=== PATIENT | male | born 1955 | race Caucasian/White ===

== ENCOUNTER 2024-12-19 12:18 | Emergency (ER) | payer OTHER ==
[~2024-12-19] VITALS: Ht 177.8 cm; Wt 76.3 kg
[2024-12-19 12:26] VITALS: TEMP 97.5
[2024-12-19 13:21] LABS: COVID AG,FIA SOURCE NASAL SWAB
[2024-12-19 13:24] LABS: BASOPHILS % (AUTO) 0.6 % (0.0-2.0); EOSINOPHILS % (AUTO) 3.5 % (1.0-6.0); HEMATOCRIT 47.1 % (41-53); HEMOGLOBIN 15.7 g/dL (13.5-17.5); LYMPHOCYTES # (AUTO) 1.8 K/uL (1.0-4.8); MEAN CORPUSCULAR HEMOGLOBIN 29.6 pg (26.0-34.0); MEAN CORPUSCULAR HGB CONC 33.2 G/dL (31.0-37.0); MEAN CORPUSCULAR VOLUME 89 fL (80-100); MONOCYTES # (AUTO) 0.7 K/uL (0.1-1.0); MONOCYTES % (AUTO) 8.7 % (2.0-9.0); NEUTROPHILS # (AUTO) 4.7 K/uL (1.8-7.7); NEUTROPHILS % (AUTO) 63.2 % (40.0-70.0); PLATELET COUNT (AUTO) 150 K/uL (150-450); RED BLOOD CELL COUNT(AUTO) 5.29 MIL/uL (4.50-5.90); RED CELL DISTRIBUTION WIDTH 15.1 % (11.5-14.5); WHITE BLOOD COUNT (AUTO) 7.5 K/uL (4.5-11.0)
[2024-12-19 13:31] LABS: ANION GAP 7 mmol/L (8-16); CALCIUM, TOTAL 8.8 mg/dL (8.8-10.5); CARBON DIOXIDE 31 mmol/L (22-29); CHLORIDE 103 mmol/L (98-107); CREATININE 1.28 mg/dL (0.60-1.30); GLOMERULAR FILTR. RATE CALC 56 mL/min (>60); GLUCOSE,RANDOM 99 mg/dL (70-110); POTASSIUM 4.2 mmol/L (3.5-5.1); SODIUM SERUM 141 mmol/L (136-145); UREA NITROGEN, BLOOD 25 mg/dL (7-18)
[2024-12-19 13:35] LABS: ALBUMIN 3.2 g/dL (3.4-5.0); BILIRUBIN,DIRECT 0.2 mg/dL (0.00-0.20); BILIRUBIN,TOTAL 0.7 mg/dL (0.1-1.0); TOTAL PROTEIN, SERUM 6.5 g/dL (6.4-8.2)
[2024-12-19 13:40] LABS: TROPONIN I-HIGH SENSITIVITY 17 ng/L (<76)
[2024-12-19 13:42] LABS: SARS-COV2 (COVID) ANTIGEN,FIA Negative (Negative)
[2024-12-19 15:30] VITALS: BP 135/87; PULSE 48; RESP 16; O2SAT 98
[2024-12-19 15:42] LABS: TROPONIN I-HIGH SENSITIVITY 16 ng/L (<76)
== END 2024-12-19 16:20 | disposition left against medical advice (07) ==
LOC: EMS 12:18
DX: R07.2 Precordial pain (principal); Z20.822 Contact with and (suspected) exposure to COVID-19
CPT/HCPCS: 71045; 80048; 80076; 83880; 84484; 85025; 93005; 99285; 36415-L1; 36415-TC